=== PATIENT | female | born 1935 | race Asian ===

== ENCOUNTER 2024-06-18 09:45 | Outpatient (CLI) | payer OTHER, MEDICAID | END 2024-06-18 09:46 | disposition home or self-care (01) | LOC: CSHULT 09:45 | PROVIDERS: ATTEND Internal Medicine | DX: R79.89 Other specified abnormal findings of blood chemistry (principal); E83.118 Other hemochromatosis; K86.89 Other specified diseases of pancreas | CPT/HCPCS: 76700 ==

== ENCOUNTER 2024-07-16 08:20 | Outpatient (CLI) | payer OTHER, MEDICAID ==
[2024-07-16] MEDS ORDERED: Iopamidol 300 61% 100 ML VIAL FS ONE (13:26)
== END 2024-07-16 08:21 | disposition home or self-care (01) ==
LOC: CSHCT 08:20
PROVIDERS: ATTEND Internal Medicine
DX: K86.9 Disease of pancreas, unspecified (principal); E83.118 Other hemochromatosis; N94.89 Other specified conditions associated with female genital organs and menstrual cycle; K76.9 Liver disease, unspecified; I51.7 Cardiomegaly
CPT/HCPCS: 36415; 74160; 82565 ×2; Q9967